=== PATIENT | female | born 1965 | race Caucasian/White ===

== ENCOUNTER → 2019-11-18 | Outpatient (CLI) | payer MEDICAID, MEDICARE ==
--- NOTE | 2019-11-21 10:46 | RAD ---
DATE: 11/18/2019 8:13 AM EXAM: MAMMO CLIFF SCREENING BILATERAL HISTORY: Screening . History of benign left breast biopsy. COMPARISON: 02/24/2018 Bilateral CC and MLO views of the breasts were performed. Bilateral breast tomosynthesis was performed in CC and MLO projections. This study was interpreted with the benefit of Computerized Aided Detection (CAD). FINDINGS: Breast Density: SCATTERED The breast parenchyma shows scattered fibroglandular densities. Breast parenchyma level B Focal asymmetry upper inner right breast, best appreciated on cc tomographic image 26 and MLO tomographic image 33 could be artifact of overlapping fibroglandular tissue but needs additional imaging with spot compression views, full-field lateral view and possible targeted right breast ultrasound. The left mammogram is negative. IMPRESSION: Right breast focal asymmetry, findings for which additional imaging is advised. BI-RADS CATEGORY: 0 INCOMPLETE: NEEDS ADDITIONAL IMAGING EVALUATION AND/OR PRIOR MAMMOGRAMS FOR COMPARISON. RECOMMENDED FOLLOW-UP: ADD ADDITIONAL IMAGING . Additional views including spot compression and full-field lateral views with possible targeted right breast ultrasound recommended. PQRS compliance statement: Patient information was entered into a reminder system with a target due date for the next mammogram. Mammography is a sensitive method for finding small breast cancers, but it does not detect them all and is not a substitute for careful clinical examination. A negative mammogram does not negate a clinically suspicious finding and should not result in delay in biopsying a clinically suspicious abnormality. "Our facility is accredited by the [employer] Mammography [employer]."
== END | disposition home or self-care (01) ==
LOC: MAMMO 07:50
PROVIDERS: ATTEND Specialist
DX: Z12.31 Encounter for screening mammogram for malignant neoplasm of breast (principal); N64.89 Other specified disorders of breast
CPT/HCPCS: 77063; 77067

== ENCOUNTER → 2019-11-30 | Outpatient (CLI) | payer MEDICAID, MEDICARE ==
--- NOTE | 2019-11-30 17:42 | RAD ---
DATE: 11/30/2019 2:13 PM EXAM: DIGITAL DIAGNOSTIC RT, BREAST RIGHT HISTORY: Screening recall for asymmetry in the upper inner right breast COMPARISON: 11/18/2019, 02/24/2018. FINDINGS: Spot compression views of the right breast in the CC and MLO projections were obtained in addition to a full-field right ML view. Computer-aided detection was utilized. Targeted ultrasound of the upper inner right breast was subsequently pursued. FINDINGS: Breast Density: SCATTERED The breast parenchyma shows scattered fibroglandular densities. Breast parenchyma level B The questioned asymmetry changed configuration in a pattern suggesting overlap of fibroglandular tissue. Targeted ultrasound of the upper inner quadrant right breast showed no suspicious sonographic findings. IMPRESSION: No evidence of malignancy. BI-RADS CATEGORY: 1 NEGATIVE RECOMMENDED FOLLOW-UP: 12M 12 MONTH FOLLOW-UP Annual screening mammography is recommended, unless clinically indicated sooner based on symptoms or change in physical exam. PQRS compliance statement: Patient information was entered into a reminder system with a target due date for the next mammogram. Mammography is a sensitive method for finding small breast cancers, but it does not detect them all and is not a substitute for careful clinical examination. A negative mammogram does not negate a clinically suspicious finding and should not result in delay in biopsying a clinically suspicious abnormality. "Our facility is accredited by the [employer] Mammography Program."
== END | disposition home or self-care (01) ==
LOC: MAMMO 13:39
PROVIDERS: ATTEND Specialist
DX: R92.2 Inconclusive mammogram (principal)
CPT/HCPCS: 76641; 77065

== ENCOUNTER → 2019-12-28 | Outpatient (CLI) | payer MEDICAID, MEDICARE ==
--- NOTE | 2019-12-28 18:36 | RAD ---
EXAM: FOOT RIGHT 3V 12/28/2019 12:00 AM CLINICAL INDICATION:Right foot pain COMPARISON:None TECHNIQUE:3 views of the right foot FINDINGS:No acute fracture. Alignment is normal. Joint spaces are maintained. There is no focal soft tissue abnormality. IMPRESSION:No acute osseous abnormality. Electronically signed by: Tammy Mcgrath MD (12/28/2019 6:33 PM) [id number]
== END ==
LOC: DXRAD 16:26
PROVIDERS: ATTEND Specialist
DX: M79.671 Pain in right foot (principal)
CPT/HCPCS: 73630

== ENCOUNTER → 2020-04-17 | Outpatient (CLI) | payer MEDICAID, MEDICARE ==
--- NOTE | 2020-04-17 15:17 | RAD ---
Bilateral lower extremity arterial duplex study 04/17/2020 CLINICAL HISTORY: Bilateral lower extremity cyanosis. TECHNIQUE: Using a combination real-time ultrasound imaging and color-flow and pulse Doppler imaging techniques, duplex evaluation of the major arterial structures of both arteries was performed. Multip le images were obtained. FINDINGS: Mild atheromatous/atherosclerotic plaque formation is seen scattered throughout the major a rterial structures of both lower extremities. The arterial waveforms are triphasic/biphasic throughou t the exception of the right profunda femoral artery which is monophasic. The peak systolic velocitie s taper normally. No hemodynamically significant stenosis or area of occlusion is seen. IMPRESSION: Mild atheromatous/atherosclerotic plaque formation is seen scattered throughout the major arterial structures of both lower extremities. No hemodynamically significant stenosis or area of oc clusion is seen. Electronically signed by: Grupo Aleman MD (04/17/2020 3:15 PM) [id number]
== END ==
LOC: US 12:45
PROVIDERS: ATTEND Specialist
DX: R23.0 Cyanosis (principal)
CPT/HCPCS: 93925

== ENCOUNTER → 2020-09-10 | Outpatient (CLI) | payer MEDICAID, MEDICARE ==
--- NOTE | 2020-09-10 18:08 | RAD ---
XR CERVICAL SPINE 2-3V History: Reason: CERVICALAGIA, HEADACHE / Spl. Instructions: / History: Technique: 3 views cervical spine. Comparison: None. Findings: Straightening of the normal cervical lordosis. Normal vertebral body height. No fracture. Mild degene rative disc changes most prominent C4-C5 and C5-C6. Prevertebral soft tissues unremarkable. Vascular calcifications. Impression: 1. Mild multilevel cervical spondylosis. Electronically signed by: Miles Ocampo DO (09/10/2020 6:05 PM) [id number]
--- NOTE | 2020-09-10 18:11 | RAD ---
CT HEAD/BRAIN WO History: Reason: HEADACHE / Spl. Instructions: / History: Comparison: None. Technique: Noncontrast CT imaging was performed of the head. Exposure: One or more of the following individualized dose reduction techniques were utilized for thi s examination: 1. Automated exposure control 2. Adjustment of the mA and/or kV according to patient size 3. Use of iterative reconstruction technique. Findings: No intracranial hemorrhage. No mass effect. No hydrocephalus. Mild foci of decreased attenuation within the hemispheric white matter predominantly periventricular. Imaged orbits are unremarkable. Imaged paranasal sinuses and mastoid air cells are clear. No acute ca lvarial fracture. Impression: 1. No acute intracranial abnormality. 2. Mild nonspecific white matter changes. Differential considerations include sequela chronic microv ascular ischemia, demyelinating disease, migraine headaches or vasculitis. Electronically signed by: Miles Ocampo DO (09/10/2020 6:09 PM) [facility]
== END ==
LOC: CT 17:17
PROVIDERS: ATTEND Specialist
DX: M47.812 Spondylosis without myelopathy or radiculopathy, cervical region (principal); R51.9 Headache, unspecified
CPT/HCPCS: 70450; 72040